=== PATIENT | male | born 1985 | race Caucasian/White ===

== ENCOUNTER 2016-09-06 16:32 | Outpatient (CLI) | payer OTHER | END 2016-09-06 16:33 | disposition home or self-care (01) | DX: S86.011A Strain of right Achilles tendon, initial encounter (principal) ==

== ENCOUNTER 2016-09-10 06:03 | Day surgery (SDC) | payer OTHER ==
[2016-09-10] MEDS ORDERED: ceFAZolin 2 GM/50 ML 50 ML IV ONE (06:37)
[2016-09-10] MEDS ORDERED: ACETAMINOPHEN 1,000 MG/100 ML 100 ML IV ONE (06:37)
[2016-09-10] MEDS ORDERED: CELECOXIB 100 MG CAPSULE PO ONE (06:38)
[2016-09-10] MEDS ORDERED: LACTATED RINGERS 1,000 ML IV ONE ×2 (06:43→09:31)
[2016-09-10] MEDS ORDERED: BUPIVACAINE 0.25% PF 30 ML VIAL SUBQ ONE ×2 (07:41→09:22)
[2016-09-10] MEDS ORDERED: ROPIVACAINE 0.5% PF 20 ML AMPULE EP ONE (08:00)
[2016-09-10] MEDS ORDERED: DEXAMETHASONE 4 MG/ML VIAL IVP ONE (08:00)
[2016-09-10] MEDS ORDERED: ONDANSETRON 4 MG/2 ML VIAL IVP ONE (08:00)
[2016-09-10] MEDS ORDERED: ROCURONIUM 50 MG/5 ML VIAL IVP ONE (08:00)
[2016-09-10] MEDS ORDERED: PROPOFOL 200 MG/20 ML VIAL IVP ONE (08:00)
[2016-09-10] MEDS ORDERED: LIDOCAINE-MPF 2% 5 ML VIAL IM ONE (08:00)
[2016-09-10] MEDS ORDERED: fentaNYL 100 MCG/2 ML VIAL IVP ONE (08:00)
== END 2016-09-10 06:04 | disposition home or self-care (01) ==
PROC: 0LQN0ZZ Repair Right Lower Leg Tendon, Open Approach (ICD-10-PCS; principal; 2016-09-10 07:30)
DX: S86.011A Strain of right Achilles tendon, initial encounter (principal); X50.1XXA Overexertion from prolonged static or awkward postures, initial encounter; Y93.67 Activity, basketball; I10 Essential (primary) hypertension
CPT/HCPCS: 27650; A9270; J0131; J0690; J7120

== ENCOUNTER 2019-06-07 17:02 | Emergency (ER) | payer OTHER ==
[2019-06-07 17:13] VITALS: BP 135/85
--- NOTE | 2019-06-07 17:18 | ED Physician Documentation ---
PD HPI LOWER EXT INJURY - Stated complaint Stated Complaint: LT ANKLE PAIN - Chief complaint Chief Complaint: Ext Problem - History obtained from History obtained from: Patient - History of Present Illness PD HPI LOW EXT INJURY LOCATION: Left, Ankle (Achilles) Type of injury: Other (he was playing basketball and was pushing off for jump and felt a sudden pop and pain in back of heel. Unable to walk/push off with foot. Concerned about Achilles rupture.). No: Fall Where injury occurred: Other (basketball court) Timing - onset: How many hours ago (1), Today Timing - details: Abrupt onset, Still present Worsened by: Palpating, Other (trying to walk) Associated symptoms: Weakness (unable to plantarflex). No: Numbness, Swelling Contributing factors: Prior ortho surgery (had rupture of right achilles with surgical repair in the past.) Review of Systems Skin: denies: Abrasion (s), Laceration (s) Musculoskeletal: reports: Extremity pain Neurologic: reports: Focal weakness. denies: Numbness PD PAST MEDICAL HISTORY - Past Medical History Past Medical History: No Cardiovascular: None Respiratory: None Endocrine/Autoimmune: None GI: None : None HEENT: Chronic vision loss Psych: None Musculoskeletal: Other Derm: None - Past Surgical History Past Surgical History: Yes - Present Medications Home Medications: Ambulatory Orders Medication Instructions Recorded Confirmed Hydrocodone/Acetaminophen [[place] 1 each PO Q6H PRN #15 tablet 06/07/19 5-325 Tablet] Naproxen 500 mg PO BID #20 tablet 06/07/19 - Allergies Allergies/Adverse Reactions: Allergies Allergy/AdvReac Type Severity Reaction Status Date / Time No Known Drug Allergies Allergy Verified 09/08/16 13:23 - Social History Does the pt smoke?: No Smoking Status: Never smoker Does the pt drink ETOH?: No Does the pt have substance abuse?: No - Immunizations Immunizations are current?: Yes PD ED PE NORMAL - Vitals Vital signs reviewed: Yes - General General: Alert and oriented X 3, No acute distress, Well developed/nourished - Derm Derm: Normal color, Warm and dry - Extremities Extremities: Other (left ankle with tenderness and softness at the mid Achilles area, and no movement of the area with passive dorsiflexion c/w achilles rupture (might have faint tension of the tendon, so consider near complete rupture). ) - Neuro Neuro: Alert and oriented X 3, No motor deficit, No sensory deficit Results - Vitals Vitals: Vital Signs - 24 hr 06/07/19 17:10 Temperature 37.1 C Heart Rate 88 Respiratory 18 Rate Blood Pressure 135/85 H O2 Saturation 99 Oxygen O2 Source Room air - Rads (name of study) ankle xray Radiology: Prelim report reviewed (no fracture), See rad report PD MEDICAL DECISION MAKING - ED course Complexity details: considered differential (feels like complete or near complete achilles rupture. Splinted in equines and will have him see Ortho. ), d/w patient Departure - Departure Disposition: Home, Self Care Clinical Impression: Achilles rupture, left Qualifiers: Encounter type: initial encounter Qualified Code(s): S86.012A - Strain of left Achilles tendon, initial encounter Condition: Stable Record reviewed to determine appropriate education?: Yes Instructions: ED Tendon Rupture Achilles Follow-Up: CHARANJIT GARCIA III, MD [Primary Care Provider] - Prescriptions: Hydrocodone/Acetaminophen [[place] 5-325 Tablet] 1 each PO Q6H PRN #15 tablet PRN Reason: Pain Naproxen 500 mg PO BID #20 tablet Comments: Keep the ankle in the splint elevated and rested often to reduce swelling. Crutches for nonweightbearing. Use some anti-inflammatories such as naproxen twice daily. To that add Tylenol or hydrocodone as needed for pain. [facility] with orthopedics for definitive care which will likely be surgical repair. I will try to contact the [place] orthopedist this evening so they will be aware of you in follow-up. At this point they have not returned the page. Forms: Activity restrictions Discharge Date/Time: 06/07/19 18:20
[2019-06-07] MEDS ORDERED: IBUPROFEN 600 MG TABLET PO STA (17:28)
[2019-06-07] MEDS ORDERED: HYDROcod/ACETAM 5/325 MG TABLET PO STA (17:28)
--- NOTE | 2019-06-07 18:23 | XRAY Report ---
Reason: achilles injury Procedure Date: 06/07/2019 Accession Number: [id number] / [id number] Procedure: XR - Ankle 3 View LT CPT Code: Final Report FULL RESULT: EXAM: LEFT ANKLE RADIOGRAPHY EXAM DATE: 06/07/2019 05:50 PM. CLINICAL HISTORY: Achilles injury while playing basketball today. COMPARISON: None. TECHNIQUE: 3 views. FINDINGS: Bones: Normal. No fractures or bone lesions. Joints: Normal. No effusion. No subluxations. The ankle mortise is normally aligned. Soft Tissues: Unremarkable. IMPRESSION: Normal ankle radiography. [facility]
== END 2019-06-07 18:20 | disposition home or self-care (01) ==
LOC: ED 17:02
DX: S86.012A Strain of left Achilles tendon, initial encounter (principal); X50.1XXA Overexertion from prolonged static or awkward postures, initial encounter; Y93.67 Activity, basketball; Y92.310 Basketball court as the place of occurrence of the external cause
CPT/HCPCS: 73610; 99283; A9270

== ENCOUNTER 2019-06-15 05:55 | Day surgery (SDC) | payer OTHER ==
[2019-06-15] MEDS ORDERED: CEFAZOLIN SODIUM IN 0.9 % NACL 2 GM/100 ML BAG IV ONE (06:10)
[2019-06-15] MEDS ORDERED: LACTATED RINGERS 1,000 ML IV ONE ×3 (06:28→09:42)
--- NOTE | 2019-06-15 07:09 | ANESTHESIA ---
Pre-Anesthesia VS, & Labs - Diagnosis left achilles tendon tear - Procedure left achilles tendon repair Vital Signs: Temp Pulse Resp BP Pulse Ox 36.3 C L 84 20 141/83 H 100 06/15/19 06:13 06/15/19 06:13 06/15/19 06:13 06/15/19 06:13 06/15/19 06:13 Height 5 ft 6 in Weight (kg) 65.77 kg Body Mass Index 23.3 Home Medications and Allergies Allergies/Adverse Reactions: Allergies Allergy/AdvReac Type Severity Reaction Status Date / Time No Known Drug Allergies Allergy Verified 06/08/19 10:14 Anes History & Medical History - Anesthetic History Anesthesia Complications: reports: No previous complications Family history of Anesthesia Complications: Denies Family history of Malignant Hyperthermia: Denies - Medical History Cardiovascular: reports: None Pulmonary: reports: None Gastrointestinal: reports: None Urinary: reports: None Neuro: reports: None Musculoskeletal: reports: None, Other Endocrine/Autoimmune: reports: None Blood Disorders: reports: None Skin: reports: None Smoking Status: Never smoker Psychosocial: reports: No issues indicated - Surgical History Orthopedic: Other (right achilles tendon repair 2016) Exam General: Alert, Oriented x3, Cooperative, No acute distress Dental: WNL Mouth Openin Fingerbreadth Neck Mobility: Normal Mallampati classification: I Thyromental Distance: 4-6 cm Respiratory: Lungs clear, Normal breath sounds, No respiratory distress, No accessory muscle use Cardiovascular: Regular rate, Normal S1, Normal S2, No murmurs Abdomen: Normal bowel sounds, Soft, No tenderness, No hepatospenomegaly, No masses Extremities: No clubbing, No cyanosis, No edema, Normal pulses, No tenderness/swelling Neurological: Normal gait, Normal speech, Strength at 5/5 X4 ext, Normal tone, Sensation intact, Cranial nerves 3-12 NL, Reflexes 2+ Mental/Cognitive Status: Alert/Oriented X3, Normal for patient Cognitive Status: Within normal limits Plan Anesthesia Type: General Regional Block: Per Surgeon's request for Post Op pain control Consent for Procedure(s) Verified and Reviewed: Yes Code Status: Attempt Resuscitation ASA classification: 2-Mild systemic disease Is this case an emergency?: No
[2019-06-15] MEDS ORDERED: BUPIVACAINE 0.25% PF 30 ML VIAL ONE (07:19)
[2019-06-15] MEDS ORDERED: ROPIVACAINE 0.5% PF 20 ML AMPULE ONE (07:20)
[2019-06-15] MEDS ORDERED: ACETAMINOPHEN 1,000 MG/100 ML 100 ML IV ONE (09:39)
[2019-06-15] MEDS ORDERED: ONDANSETRON 4 MG/2 ML VIAL IVP PRN (09:40)
[2019-06-15] MEDS ORDERED: oxyCODONE 5 MG TABLET PO PRN (09:40)
[2019-06-15] MEDS ORDERED: HYDROmorphone 0.5 MG/0.5 ML SYRINGE ONE (09:56)
[2019-06-15] MEDS: HYDROmorphone 0.5 MG/0.5 ML SYRINGE ONE ×2 (10:01→10:06)
[2019-06-15] MEDS ORDERED: oxyCODONE 5 MG TABLET ONE ×2 (10:35→10:51)
--- NOTE | 2019-06-15 11:18 | OPERATIVE REPORT ---
Operative Report - Other Other Information/Narrative: Date of Surgery: 15 June 2019 Pre-Op Diagnosis: Left Achilles tendon midsubstance rupture Procedure: Left Achilles repair Postop Diagnosis: Left Achilles tendon midsubstance rupture Primary Surgeon: Mazin Ndiaye Secondary Surgeon: None Complications: None Tourniquet Time: 53 minutes EBL: 5 cc Implants: #2 FiberWire x2 Postoperative Protocol: Splint in full plantarflexion for 2 weeks. At the 2- week visit with it will be removed and he will begin the [place] protocol at our clinic Indication For Surgery: []. The risks, benefits, and alternatives were discussed. Risks include pain, bleeding, infection, damage to nearby structures, numbness, lack of symptom relief, implant complications, nonunion, need for further surgery, DVT, PE, stroke, and . Written consent was obtained. Procedure in Detail: The patient was met in the pre-operative hold area on the day of the procedure. The operative extremity was signed and questions were answered. The patient was brought to the operating room and a general anesthetic was administered. Prone position was used and all bony prominences were padded. Standard prepping and draping was performed. A time out confirmed patient identification, laterality, procedure, allergies, antibiotics, and images. An Esmarch was used to exsanguinate the limb and the tourniquet was elevated to 250 mmHg. A longitudinal incision was made 1 cm to the midline. Careful dissection was performed down to the peritenon. Scissors were used the laterally and the sural nerve was not seen within the surgical field. The peritenon was split longitudinally and the tear was identified. Deep portion of the peritenon was then pie crusted to allow for mobility later. I then debrided the ends of the tear back to healthy-appearing tissue. I then used a FiberWire stitch in the proximal remnant with 5 Krackow sutures up in 5 Krakw sutures down. I then used the same technique and the distal remnant as well. A free needle was then used to create the gift box and the sutures were passed through the repair site across to the other side in a position beyond the other Krackow sutures. Tension was then pulled to reduce the tear and the knots were tied. The repair was then oversewn with 0 Vicryl in a running fashion and tied on the deep surface. The wound was then irrigated copiously and closed in a layered fashion with a running Vicryl in the peritenon, 2-0 Vicryl in the dermis, and 3-0 nylon in the skin. A well-padded splint was applied. The patient was awakened and transferred to the recovery room.
[2019-06-15 11:34] VITALS: BP 116/71
== END 2019-06-15 05:56 | disposition home or self-care (01) ==
LOC: SDS 05:55
PROVIDERS: ATTEND Orthopaedic Surgery
PROC: 0LQP0ZZ Repair Left Lower Leg Tendon, Open Approach (ICD-10-PCS; principal; 2019-06-15 07:30)
DX: S86.012A Strain of left Achilles tendon, initial encounter (principal); X50.0XXA Overexertion from strenuous movement or load, initial encounter; Y93.67 Activity, basketball; Y92.310 Basketball court as the place of occurrence of the external cause; Y99.8 Other external cause status; H52.13 Myopia, bilateral; Z79.82 Long term (current) use of aspirin